=== PATIENT | female | born 1980 | race Hispanic/Latino ===

== ENCOUNTER 2021-12-31 21:29 | Emergency (ER) | payer OTHER ==
[2021-12-31] MEDS ORDERED: predniSONE 20 MG TAB ONE (22:03)
== END 2021-12-31 22:07 | disposition home or self-care (01) ==
LOC: BURERS 21:29
DX: J30.9 Allergic rhinitis, unspecified (principal)
CPT/HCPCS: 99282; J7512

== ENCOUNTER 2022-01-07 22:54 | Emergency (ER) | payer OTHER ==
[2022-01-08] MEDS ORDERED: hydrOXYzine 25 MG TAB ONE (00:39)
== END 2022-01-08 01:05 | disposition home or self-care (01) ==
LOC: BURERS 22:54
DX: J00 Acute nasopharyngitis [common cold] (principal)
CPT/HCPCS: 99283

== ENCOUNTER 2022-07-29 22:33 | Emergency (ER) | payer OTHER, SELFPAY ==
[2022-07-29] MEDS ORDERED: Bicillin LA 1.2 MILLION UNITS/2 ML SYRINGE ONE ×3 (22:53→23:02)
[2022-07-29] MEDS ORDERED: Penicillin V Potassium 250 MG TAB ONE (22:53)
== END 2022-07-29 23:00 | disposition home or self-care (01) ==
LOC: BURERS 22:33
DX: J02.9 Acute pharyngitis, unspecified (principal)
CPT/HCPCS: 96372; 99283; J0561

== ENCOUNTER 2023-05-15 07:49 | Emergency (ER) | payer OTHER, SELFPAY ==
[2023-05-15] MEDS ORDERED: Ibuprofen 800 MG TAB ONE (08:13)
[2023-05-15] MEDS ORDERED: Dexamethasone 4 mg/ml Vial ONE (08:44)
== END 2023-05-15 08:49 | disposition home or self-care (01) ==
LOC: BURERS 07:49
DX: B34.9 Viral infection, unspecified (principal)
CPT/HCPCS: 87081; 87430; 87804; 96372; 99283; J1100